=== PATIENT | female | born 1995 | race Caucasian/White ===

== ENCOUNTER 2017-12-08 23:18 | Inpatient (IN) | payer MEDICAID ==
[2017-12-09] MEDS ORDERED: Butorphanol 1 MG/ML SDV IVPUSH ONE (00:29)
[2017-12-09] MEDS ORDERED: Lactated Ringers 1,000 ML IV SCH (00:30)
[2017-12-09] MEDS ORDERED: Methylergonovine 0.2 MG/1 ML Amp IM PRN (05:52)
[2017-12-09] MEDS ORDERED: Misoprostol 200 MCG Tab PO PRN (05:52)
[2017-12-09] MEDS ORDERED: Carboprost Tromethamine 250 MCG/1 ML Amp IM PRN (05:52)
[2017-12-09] MEDS ORDERED: Nalbuphine 10 MG/1 ML Vial IVPUSH PRN (05:52)
[2017-12-09] MEDS ORDERED: Lidocaine 1% 50 ML MDV INJECT PRN (05:52)
[2017-12-09] MEDS ORDERED: Sodium Chloride 0.9% 10 ML Syringe FLUSH PRN (05:52)
[2017-12-09] MEDS ORDERED: Sodium Chloride 0.9% 2.5 ML Syringe FLUSH PRN (05:52)
[2017-12-09] MEDS ORDERED: Water For Irrigation,Sterile 1,000 ML Container IRR PRN (05:52)
[2017-12-09] MEDS ORDERED: Tranexamic Acid 1,000 MG in Sodium Chloride 0.9% 100 ML IV PRN (05:52)
[2017-12-09] MEDS ORDERED: Nalbuphine 10 MG/ML 10 ML MDV IVPUSH PRN (07:15)
[2017-12-09] MEDS ORDERED: Oxytocin/0.9 % Sodium Chloride 30 UNIT/500 ML BAG IV SCH ×2 (09:45→12:00)
[2017-12-09] MEDS: Lactated Ringers 1,000 ML IV SCH ×2 (09:55→13:50)
[2017-12-09] MEDS: Butorphanol 1 MG/ML SDV IVPUSH PRN ×2 (10:26→11:39)
[2017-12-09] MEDS ORDERED: fentaNYL 100 MCG/2 ML SDV ONE (13:25)
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
[2017-12-09] MEDS ORDERED: Witch Hazel Medicated Pads 40/Jar TOP PRN (16:42)
[2017-12-09] MEDS ORDERED: oxyCODONE 5 MG Tab PO PRN (16:42)
[2017-12-09] MEDS ORDERED: Acetaminophen 500 MG Tab PO PRN ×2 (16:42)
[2017-12-09] MEDS ORDERED: Benzocaine/Menthol 20%-0.5% Spray 78 GM Cannister TOP PRN (16:42)
[2017-12-09] MEDS ORDERED: Lanolin 100% Cream 7 GM Tube TOP PRN (16:42)
[2017-12-09] MEDS ORDERED: Docusate Sodium 100 MG Cap PO PRN (16:42)
[2017-12-09] MEDS ORDERED: Ibuprofen 400 MG Tab PO PRN (16:42)
[2017-12-09] MEDS ORDERED: Bisacodyl 10 MG Supp RECTAL PRN (16:42)
[2017-12-09] MEDS: Ibuprofen 800 MG Tab PO PRN (19:21)
--- NOTE | 2017-12-09 21:24 | OR ---
SURGEON: FABIOLA CARLSON DATE OF PROCEDURE: 12/09/2017 PREOPERATIVE DIAGNOSES: A 22-year-old, G1, P0, full-term patient, admitted in early labor. POSTOPERATIVE DIAGNOSES: A 22-year-old, G1, P0, full term and early labor. PROCEDURES: Normal spontaneous vaginal delivery and repair of bilateral labial laceration. ESTIMATED BLOOD LOSS: 200. ANESTHESIA: Epidural and local. PROCEDURE: Normal spontaneous vaginal delivery and repair of bilateral labial lacerations. FINDING: Live female delivered at 1559 hours. scores were 9 and 9. Weight is 2890 g. Three-vessel cord. Normal placenta. BRIEF HISTORY ABOUT THE PATIENT: The patient is a 22-year-old, G1, P0, who came in with early labor when she came in. She was re-examined and she was making change, was about 4 cm dilated and about 4 hours, so she was started on Pitocin. Pitocin was started and she made change from 4 to 6, and then became fully dilated. Upon the patient being fully dilated, she was encouraged to push. DESCRIPTION OF PROCEDURE: With the patient's good pushing effort, she delivered head in ARIES position. After the head, the anterior shoulder was delivered followed by the posterior shoulder, then body of the infant was delivered. The was placed on the maternal abdomen. Delayed cord clamping was observed. The cord was clamped and clipped, and the cord blood gases were obtained. The placenta was delivered via controlled cord traction and after delivery of the placenta, the perineum was inspected. Bilateral labial laceration was noted and was repaired with 4-0 Monocryl. Inspection was done again and was intact. IV Pitocin was running. The uterus was examined, it was contracted. Lochia was minimal. All instrument and pad count were correct x2. The patient was left in labor and delivery in stable condition. SABIHA / THEODORE /[id number]
[2017-12-10] MEDS: Ibuprofen 800 MG Tab PO PRN (08:38)
--- NOTE | 2017-12-10 09:38 | PCM48HPAN ---
Post Anesthesia Note - EVALUATION WITHIN 48HRS OF ANESTHETIC Vital Signs in Normal Range: Yes Patient Participated in Evaluation: Yes Respiratory Function Stable: Yes Airway Patent: Yes Cardiovascular Function Stable: Yes Hydration Status Stable: Yes Pain Control Satisfactory: Yes Nausea and Vomiting Control Satisfactory: Yes Mental Status Recovered: Yes Resp Rate: 16 - COMMENTS/OBSERVATIONS Free Text/Narrative:: condition good with baby bonding and confirmed by her .
--- NOTE | 2017-12-10 11:19 | PCM.PNPP ---
- General Info Date of Service: 12/10/17 Admission Dx/Problem (Free Text): 22 yo P1 s/p PPD1 Subjective Update: Denies any complains , she is attempting to breastfeed. , normal lochia Functional Status: Reports: Pain Controlled, Tolerating Diet, Ambulating, Urinating - Review of Systems General: Reports: No Symptoms HEENT: Reports: No Symptoms Pulmonary: Reports: No Symptoms Cardiovascular: Reports: No Symptoms Gastrointestinal: Reports: No Symptoms Genitourinary: Reports: No Symptoms Musculoskeletal: Reports: No Symptoms Skin: Reports: No Symptoms Neurological: Reports: No Symptoms Psychiatric: Reports: No Symptoms - General Info Date of Service: 12/10/17 - Patient Data Vital Signs - Most Recent: Last Vital Signs Temp 36.8 C 12/10/17 08:15 Pulse 59 L 12/10/17 08:15 Resp 16 12/10/17 09:37 BP 87/48 L 12/10/17 08:15 Pulse Ox 99 12/10/17 08:15 Weight - Most Recent: 68.039 kg Lab Results - Last 24 Hours: Laboratory Results - last 24 hr 12/10/17 Range/Units 04:25 Hgb 10.9 L (12.0-16.0) g/dL Hct 33.3 L (36.0-46.0) % Med Orders - Current: Current Medications Acetaminophen (Tylenol Extra Strength) 500 mg PO Q4H PRN PRN Reason: Pain Acetaminophen (Tylenol Extra Strength) 1,000 mg PO Q4H PRN PRN Reason: Pain Benzocaine/Menthol (Dermoplast Pain Relief 20%-0.5% [place]) 78 gm TOP ASDIRECTED PRN PRN Reason: Perineal Comfort Measure Last Admin: 12/09/17 19:23 Dose: 1 canister Bisacodyl (Dulcolax) 10 mg RECTAL .ONCE PRN PRN Reason: Constipation Carboprost Tromethamine (Hemabate Ds) 250 mcg IM ASDIRECTED PRN PRN Reason: Post Hemorrhage Docusate Sodium (Colace) 100 mg PO BID PRN PRN Reason: Constipation Emollient Ointment (Lansinoh Hpa) 0 gm TOP ASDIRECTED PRN PRN Reason: Sore Nipples Tranexamic Acid 1,000 mg/ (Sodium Chloride) 110 mls @ 660 mls/hr IV ONETIME PRN PRN Reason: Bleeding Lactated Ringer's (Ringers, Lactated) 1,000 mls @ 150 mls/hr IV ASDIRECTED LILIYA Last Admin: 12/09/17 13:50 Dose: 150 mls/hr Oxytocin/Sodium Chloride (Oxytocin 30 Unit/500 Ml-Ns) 30 unit in 500 mls @ 500 mls/hr IV TITRATE LILIYA Oxytocin/Sodium Chloride (Oxytocin 30 Unit/500 Ml-Ns) 30 unit in 500 mls @ 2 mls/hr IV TITRATE LILIYA; Protocol Last Infusion: 12/09/17 16:00 Dose: 999 mls/hr Ibuprofen (Motrin) 400 mg PO Q4H PRN PRN Reason: Pain Ibuprofen (Motrin) 800 mg PO Q6H PRN PRN Reason: Pain Last Admin: 12/10/17 08:38 Dose: 800 mg Lidocaine HCl (Xylocaine 1%) 50 ml INJECT .ONCE PRN PRN Reason: Laceration repair Last Admin: 12/09/17 16:09 Dose: 50 ml Methylergonovine Maleate (Methergine) 0.2 mg IM ASDIRECTED PRN PRN Reason: Post Hemorrhage Misoprostol (Cytotec) 200 mcg PO .ONCE PRN PRN Reason: Post Hemorrhage Oxycodone HCl (Oxycodone) 5 mg PO Q2H PRN PRN Reason: Pain Sodium Chloride (Saline Flush) 10 ml FLUSH ASDIRECTED PRN PRN Reason: Keep Vein Open Sodium Chloride (Saline Flush) 2.5 ml FLUSH ASDIRECTED PRN PRN Reason: Keep Vein Open Sterile Water (Sterile Water For Irrigation) 1,000 ml IRR ASDIRECTED PRN PRN Reason: delivery Last Admin: 12/09/17 16:09 Dose: 1,000 ml Witch Christiana (Tucks) 1 pad TOP ASDIRECTED PRN PRN Reason: comfort care Discontinued Medications Butorphanol Tartrate (Stadol) 1 mg IVPUSH ONETIME ONE Stop: 12/09/17 00:30 Last Admin: 12/09/17 00:44 Dose: 1 mg Butorphanol Tartrate (Stadol) 1 mg IVPUSH Q1H PRN PRN Reason: Pain Last Admin: 12/09/17 11:39 Dose: 1 mg Fentanyl (Sublimaze) Confirm Administered Dose 100 mcg .ROUTE .STK-MED ONE Stop: 12/09/17 13:26 Last Admin: 12/09/17 14:15 Dose: Not Given Lactated Ringer's (Ringers, Lactated) 1,000 mls @ 999 mls/hr IV ASDIRECTED LILIYA Stop: 12/09/17 01:31 Last Admin: 12/09/17 00:40 Dose: 999 mls/hr Fentanyl/Bupivacaine HCl (Kpjmiwrq-Lvaez-Ba 2 Mcg/Ml-0.125%) Confirm Administered Dose 100 mls @ as directed EP .STK-MED ONE Stop: 12/09/17 13:26 Last Admin: 12/09/17 14:15 Dose: Not Given Nalbuphine HCl (Nubain) 10 mg IVPUSH Q1H PRN PRN Reason: Pain (severe 7-10) Nalbuphine HCl (Nubain) 10 mg IVPUSH Q1H PRN PRN Reason: Pain (severe 7-10) - Infant Interaction Support Person: Significant Other - Recovery Exam Fundal Tone: Firm Fundal Level: At Umbilicus Fundal Placement: Midline Lochia Amount: Scant Lochia Color: Rubra/Red Perineum Description: Intact, Minimal Bruising/Swelling Episiotomy/Laceration: None Bladder Status: Voiding Urinary Elimination: Voided - Exam General: Alert HEENT: Pupils Equal Neck: Supple Lungs: Clear to Auscultation Cardiovascular: Regular Rate, Regular Rhythm GI/Abdominal Exam: Normal Bowel Sounds Extremities: Normal Inspection Skin: Warm Wound/Incisions: Healing Well Neurological: No New Focal Deficit Psy/Mental Status: Alert - Problem List & Annotations (1) Vaginal delivery SNOMED Code(s): 067349303 Code(s): O80 - ENCOUNTER FOR FULL-TERM UNCOMPLICATED DELIVERY Status: Acute Current Visit: Yes - Problem List Review Problem List Initiated/Reviewed/Updated: Yes - My Orders Last 24 Hours: My Active Orders 12/09/17 16:42 Patient Status [ADT] Routine May Shower [RC] ASDIRECTED Up ad Adeola [RC] ASDIRECTED Vital Signs [RC] PER UNIT ROUTINE Acetaminophen [Tylenol Extra Strength] 1,000 mg PO Q4H PRN Acetaminophen [Tylenol Extra Strength] 500 mg PO Q4H PRN Benzocaine/Menthol [Dermoplast Pain Relief 20%-0.5% Newfane] 78 gm TOP ASDIRECTED PRN Bisacodyl [Dulcolax] 10 mg RECTAL .ONCE PRN Docusate Sodium [Colace] 100 mg PO BID PRN Ibuprofen [Motrin] 400 mg PO Q4H PRN Ibuprofen [Motrin] 800 mg PO Q6H PRN Lanolin [Lansinoh HPA] See Dose Instructions TOP ASDIRECTED PRN Witch Christiana [Tucks] 1 pad TOP ASDIRECTED PRN oxyCODONE 5 mg PO Q2H PRN Assess Lochia [WOMSER] Per Unit Routine Assess Uterine Involution [WOMSER] Per Unit Routine Peripheral IV Discontinue [OM.PC] Routine Resuscitation Status Routine 12/10/17 Breakfast Regular Diet [DIET] - Assessment Assessment:: 22 yo P1 s/p PPD 1 , normal lochia - Plan Plan:: Pain control as needed Routine care
== END 2017-12-10 18:25 | disposition home or self-care (01) | DRG 775 ==
LOC: MW.OBCHECK 23:18 → MW.OB 23:25 → MW.OBCHECK 12-09 05:52 → OBSVTOIN 12-09 15:59 → MW.OB 12-09 20:00
PROVIDERS: ADMIT Obstetrics & Gynecology; ATTEND Obstetrics & Gynecology
PROC: 10E0XZZ Delivery of Products of Conception, External Approach (ICD-10-PCS; principal; 2017-12-09)
PROC: 0HQ9XZZ Repair Perineum Skin, External Approach (ICD-10-PCS; 2017-12-09)
DX: O70.0 First degree perineal laceration during delivery (principal); Z3A.38 38 weeks gestation of pregnancy; Z37.0 Single live birth; Z87.891 Personal history of nicotine dependence
CPT/HCPCS: 36415; 51702; 59025; 59409; 84112; 85014; 85018; 85027; 86850; 86900; 86901; A9270-GY; J0595; J2590; J7120

== ENCOUNTER 2018-09-03 09:03 | Day surgery (SDC) | payer MEDICAID ==
[~2018-09-03 09:03] MED LIST: Lactated Ringers 1,000 ML IV SCH
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
[2018-09-03] MEDS ORDERED: Propofol 200 MG/20 ML SDV ONE (11:03)
[2018-09-03] MEDS ORDERED: fentaNYL 100 MCG/2 ML SDV ONE (11:03)
[2018-09-03] MEDS ORDERED: Midazolam 1 MG/ML 2 ML SDV ONE (11:03)
[2018-09-03] MEDS ORDERED: Lidocaine 2% 5 ML SDV ONE (11:04)
[2018-09-03] MEDS ORDERED: Dexamethasone 4 MG/ML 5 ML MDV ONE (11:04)
[2018-09-03] MEDS ORDERED: Ketorolac 30 MG/ML SDV ONE (11:04)
[2018-09-03] MEDS ORDERED: Ondansetron 4 MG/2 ML SDV ONE (11:04)
[2018-09-03] MEDS ORDERED: HYDROmorphone 2 MG/ML SDV IVPUSH PRN (13:08)
[2018-09-03] MEDS ORDERED: fentaNYL 100 MCG/2 ML SDV IVPUSH PRN (13:08)
[2018-09-03] MEDS ORDERED: Ondansetron 4 MG/2 ML SDV IVPUSH PRN (13:09)
[2018-09-03] MEDS ORDERED: Phenylephrine/Normal Saline 100 MCG/ML 10 ML Syringe ONE (13:28)
[2018-09-03] MEDS ORDERED: Morphine 10 MG/ML Syringe IVPUSH PRN (13:59)
[2018-09-03] MEDS ORDERED: Acetaminophen/HYDROcodone 325-5 MG Tab PO PRN (13:59)
[2018-09-03] MEDS ORDERED: Lactated Ringers 1,000 ML IV SCH (14:00)
--- NOTE | 2018-09-03 14:01 | PCM.OPNOTE ---
- General Post-Op/Procedure Note Date of Surgery/Procedure: 09/03/18 Operative Procedure(s): Incision and drainage recurrent left perianal abscess Pre Op Diagnosis: Recurrent left perianal abscess Post-Op Diagnosis: Same Anesthesia Technique: General LMA (ASA II) Primary Surgeon: Rasheed Pillai International Relations Professor: Sung Alvarado Fluid Replacement, Intraop: 500 EBL in mLs: 5 Condition: Good Free Text/Narrative:: DICTATION 265114 CPT CODE 14748
--- NOTE | 2018-09-03 14:39 | PCM.POSTAN ---
POST ANESTHESIA ASSESSMENT - MENTAL STATUS Mental Status: Alert, Oriented - RESPIRATORY Respiratory Status: Respiratory Rate WNL, Airway Patent, O2 Saturation Stable - CARDIOVASCULAR CV Status: Pulse Rate WNL, Blood Pressure Stable - GASTROINTESTINAL GI Status: No Symptoms - PAIN Pain Score: 0 - POST OP HYDRATION Hydration Status: Adequate & Stable - OBSERVATIONS Free Text/Narrative:: The patient has no complaints at this time. There were no apparent anesthetic complications at this time. Discharge home per criteria.
--- NOTE | 2018-09-03 15:06 | PCM48HPAN ---
Post Anesthesia Note - EVALUATION WITHIN 48HRS OF ANESTHETIC Vital Signs in Normal Range: Yes Patient Participated in Evaluation: Yes Respiratory Function Stable: Yes Airway Patent: Yes Cardiovascular Function Stable: Yes Hydration Status Stable: Yes Pain Control Satisfactory: Yes Nausea and Vomiting Control Satisfactory: Yes Mental Status Recovered: Yes Resp Rate: 16
--- NOTE | 2018-09-03 17:54 | OR ---
SURGEON: Rasheed Pillai M.D. DATE OF PROCEDURE: 09/03/2018 OPERATIONS PERFORMED: Incision and drainage of recurrent left perianal abscess. ANESTHESIA: General LMA ASA CLASSIFICATION: II. PREOPERATIVE DIAGNOSIS: Recurrent left perianal abscess. POSTOPERATIVE DIAGNOSIS: Recurrent left perianal abscess. ESTIMATED BLOOD LOSS: 5 mL. INTRAOPERATIVE FLUID REPLACEMENT: 500 mL of crystalloid. DESCRIPTION OF PROCEDURE: The patient was taken to the operating room and placed the operating table in the supine position. Time-out was called for appropriate identification of the patient and procedure. Following satisfactory attainment of general anesthesia with placement of an LMA, the patient was placed in lithotomy position. The perineum was prepped with Betadine solution and sterile drapes were applied. The previous abscess cavity opening was identified and a sterile hemostats inserted into this. Small incision was made and the abscess further probed. It did extend superiorly and the whole area was opened up. Aerobic and anaerobic cultures were obtained, although I did not have a lot of purulent-looking material. This does not track towards the rectum and did not track substantially towards the vagina. Hemostasis was obtained with the use of electrocautery. The wound was then packed open with 1 inch plain Nu Gauze, soaked in saline. This was covered with fluffs and an ABD and held in place with mesh panties. Sponge, needle, and instrument counts were all correct. Following emergence from anesthesia and extubation, the patient was taken to recovery room in stable condition. TARYN / THEODORE /[id number]
== END 2018-09-03 15:25 | disposition home or self-care (01) ==
LOC: MW.SDS 09:03
PROVIDERS: ATTEND Surgery
DX: K61.0 Anal abscess (principal); F17.200 Nicotine dependence, unspecified, uncomplicated; F41.9 Anxiety disorder, unspecified; F32.9 Major depressive disorder, single episode, unspecified; Z79.899 Other long term (current) drug therapy; Z88.8 Allergy status to other drugs, medicaments and biological substances; Z91.040 Latex allergy status
CPT/HCPCS: 46050; 81025; 87070; 87075; 87205; J0131; J1100; J1885; J2001; J2250; J2370; J2405; J2704; J3010; J7120

== ENCOUNTER 2018-10-06 17:05 | Emergency (ER) | payer MEDICAID ==
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
--- NOTE | 2018-10-06 18:50 | CR ---
Indication: Cough and congestion Technique: Chest 2 views Comparison: None Findings/Impression: Cardiovascular and mediastinum: Heart size and vasculature are normal in caliber and appearance. Mediastinum is within normal limits. Lungs and pleural spaces: Lungs are clear. No sign of infiltrate or mass. No sign of pleural effusion. No pneumothorax. Bones and soft tissues: Mild scoliosis. Dictated by Jude Bailey MD @ 10/06/2018 6:46:22 PM Dictated by: Jude Bailey MD @ 10/06/2018 18:48:53 (Electronically Signed)
== END 2018-10-06 18:24 | disposition home or self-care (01) ==
LOC: MW.ED 17:05
DX: J40 Bronchitis, not specified as acute or chronic (principal); Z88.8 Allergy status to other drugs, medicaments and biological substances; Z91.040 Latex allergy status
CPT/HCPCS: 71046; 71046-26; 99283-25

== ENCOUNTER 2018-11-24 12:52 | Emergency (ER) | payer MEDICAID ==
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
[2018-11-24] MEDS ORDERED: Ketorolac 60 MG/2 ML SDV IM ONE (13:43)
--- NOTE | 2018-11-24 14:09 | CR ---
EXAMINATION: Right wrist HISTORY: Pain COMPARISON: None TECHNIQUE: 2 views FINDINGS/IMPRESSION: There is no acute osseous abnormality, dislocation, or fracture. Bone mineralization and joint spaces are grossly preserved. Radiocarpal alignment is normal.
== END 2018-11-24 14:28 | disposition home or self-care (01) ==
LOC: MW.ED 12:52
DX: S69.91XA Unspecified injury of right wrist, hand and finger(s), initial encounter (principal); Z88.6 Allergy status to analgesic agent; Z91.040 Latex allergy status; X50.1XXA Overexertion from prolonged static or awkward postures, initial encounter
CPT/HCPCS: 73100-26-RT; 73100-RT; 99283; 99283-25

== ENCOUNTER 2019-04-03 14:13 | Emergency (ER) | payer MEDICAID ==
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
--- NOTE | 2019-04-03 15:47 | CR ---
INDICATION: Injury, trauma superior to left knee TECHNIQUE: Knee radiograph 3 views left COMPARISON: None FINDINGS: Bone: No acute fractures or aggressive bone lesions are identified. Joint: The joint spaces of the medial, lateral, and patellofemoral compartments are unremarkable. No significant knee effusion is seen. Soft tissue: Unremarkable. No radiopaque foreign bodies are seen. IMPRESSION: 1. No acute osseous injuries or abnormalities are noted. Dictated by: Jameel Bell MD @ 04/03/2019 15:47:10 (Electronically Signed)
== END 2019-04-03 15:35 | disposition left against medical advice (07) ==
LOC: MW.ED 14:13
DX: S71.112A Laceration without foreign body, left thigh, initial encounter (principal); Z91.040 Latex allergy status; Z88.8 Allergy status to other drugs, medicaments and biological substances; Z79.899 Other long term (current) drug therapy; V86.56XA Driver of dirt bike or motor/cross bike injured in nontraffic accident, initial encounter
CPT/HCPCS: 73562-26-LT; 73562-LT; 99282; 99284-25

== ENCOUNTER 2019-06-27 18:04 | Emergency (ER) | payer SELFPAY ==
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
[2019-06-27] MEDS ORDERED: Ondansetron 4 MG Tab.DIS PO ONE (18:17)
--- NOTE | 2019-06-27 18:43 | CR ---
INDICATION: Chest pain, shortness of breath TECHNIQUE: Chest radiograph 2 views COMPARISON: 10/06/2018 FINDINGS: Mediastinum: The mediastinum is normal in appearance. The heart silhouette is normal in size and morphology. Lung: Both lungs are unremarkable in appearance. No sign of pleural effusion seen. No pneumothorax is identified. Bone and Soft tissue: Stable mild S-shaped scoliosis noted. IMPRESSION: 1. No acute cardiopulmonary disease is seen. Dictated by: Jameel Bell MD @ 06/27/2019 18:41:51 (Electronically Signed)
== END 2019-06-27 18:55 | disposition home or self-care (01) ==
LOC: MW.ED 18:04
DX: J10.1 Influenza due to other identified influenza virus with other respiratory manifestations (principal); J45.909 Unspecified asthma, uncomplicated; Z88.8 Allergy status to other drugs, medicaments and biological substances; Z91.040 Latex allergy status
CPT/HCPCS: 71046; 87081; 87804; 87880; 99285; A9270; 99283

== ENCOUNTER 2019-06-28 16:51 | Observation (INO) | payer SELFPAY ==
[2019-06-28] MEDS ORDERED: Sodium Chloride 0.9% 1,000 ML IV ONE ×2 (16:55→17:53)
[2019-06-28] MEDS ORDERED: Ketorolac 30 MG/ML SDV IVPUSH ONE (16:55)
[2019-06-28] MEDS ORDERED: methylPREDNISolone Sodium Succinate 125 MG/2 ML SDV IVPUSH ONE (16:56)
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
[2019-06-28] MEDS ORDERED: Acetaminophen 500 MG Tab PO ONE (17:06)
[2019-06-28] MEDS ORDERED: Albuterol/Ipratropium 3.0-0.5 MG/3 ML Neb Soln NEB ONE ×2 (17:10→18:50)
[2019-06-28 17:42] LABS: BLOOD UREA NITROGEN,BUN 6 mg/dL (7.0-18.0); CARBON DIOXIDE,CO2 29.2 mmol/L (21.0-32.0); CHLORIDE,CL 100 mmol/L (98-107); GLUCOSE RANDOM 91 mg/dL (74-106); POTASSIUM,K 3.3 mmol/L (3.5-5.1); SODIUM,NA 138 mmol/L (136-145)
[2019-06-28] MEDS ORDERED: Ibuprofen 200 MG Tab PO ONE (19:01)
[2019-06-28] MEDS ORDERED: Ibuprofen 600 MG Tab ONE (19:20)
[2019-06-28] MEDS ORDERED: Ibuprofen 600 MG Tab PO ONE (19:22)
[2019-06-28] MEDS ORDERED: Promethazine 25 MG/ML SDV IM PRN (19:30)
[2019-06-28] MEDS ORDERED: Sodium Chloride 0.9% 1,000 ML IV SCH ×2 (19:30→20:30)
[2019-06-28] MEDS ORDERED: Acetaminophen 325 MG/10.15 ML ML PO PRN (19:33)
[2019-06-28] MEDS ORDERED: Potassium Chloride Riders 40 MEQ in Premix Bag 1 BAG IV ONE (19:44)
[2019-06-28] MEDS ORDERED: Oseltamivir 75 MG Cap PO SCH (21:00)
== END 2019-06-28 19:48 | disposition left against medical advice (07) ==
LOC: MW.ED 16:51 → MW.MS 19:26
PROVIDERS: ADMIT Student in an Organized Health Care Education/Training Program; ATTEND Student in an Organized Health Care Education/Training Program
DX: E86.0 Dehydration (principal); J10.1 Influenza due to other identified influenza virus with other respiratory manifestations; F41.9 Anxiety disorder, unspecified; F32.9 Major depressive disorder, single episode, unspecified; Z88.8 Allergy status to other drugs, medicaments and biological substances
CPT/HCPCS: 80053; 83605; 85025; 87040; 94640; A9270; J1885; J2930; J7030; 96361; 96374; 96375; 99284; 99284-25; J7620-GY